=== PATIENT | male | born 1980 | race Caucasian/White ===

== ENCOUNTER 2017-01-20 04:52 | Emergency (ER) | payer SELFPAY ==
[2017-01-20] MEDS ORDERED: IV NORMAL SALINE 1,000ML 1,000 ML IV ONE (05:00)
--- NOTE | 2017-01-20 05:07 | ED.ADGEN ---
Adult General HPI HPI Patient is a 36-year-old man, with a history of seizure disorder, hypothyroidism , who presents emergency department via EMS after reported seizure. Patient is a and O 4 upon arrival to the emergency department, heart rate of 95, blood pressure 138/89, oxygen saturation of 99% on room air with respiratory rate of 20 that is unlabored. Patient states that he was "dumpster diving" with friends , when police arrived on scene, patient states that he was placed in the back of a police cruiser, where he became "really hot and burning up", he states that he then remembers being pulled out of the vehicle, and evidently had a witnessed tonic-clonic seizure per EMS report from PD report, patient is not in police custody. Patient states his last seizure was about 6 months ago, he states that he was previously on Lamictal but stopped taking the medication 2 weeks ago, and has not followed up with neurology this point and is currently off seizure medications, although he states he took his last dose of medication today. He states that he is experiencing a headache, which is consistent with his typical postseizure symptoms, but denies any focal weakness, numbness, tingling, is complaining of photophobia which is also consistent with this procedure state. Denies any ingestions or exposures, any injuries, any nausea, vomiting, chest pain, shortness breath. Patient's is present with him in the emergency department. Per report, patient first experienced an unprovoked seizure several years ago while working at [employer], he states that a cause for the seizure is not known has no history of traumatic brain injury or infection. Review of Systems Review of Systems Constitutional: Denies fever or chills [] Eyes: Denies change in visual acuity, redness, or eye pain [] HENT: Denies nasal congestion or sore throat [] Respiratory: Denies cough or shortness of breath Cardiovascular: No additional information not addressed in HPI [] GI: Denies abdominal pain, nausea, vomiting, bloody stools or diarrhea [] : Denies dysuria or hematuria [] Musculoskeletal: Denies back pain or joint pain [] Integument: Denies rash or skin lesions [] Neurologic: Denies focal weakness or sensory changes. Complaining of headache. [ ] Endocrine: Denies polyuria or polydipsia [] Current Medications Current Medications Current Medications Medications (Trade) Dose Ordered Sig/Marvin Start Time Stop Time Status Last Admin Dose Admin Sodium Chloride 1,000 ml @ 1,000 mls/hr 1X ONCE 01/20/17 05:00 01/20/17 05:59 DC 01/20/17 05:12 1,000 MLS/HR Allergies Allergies Allergies Coded Allergies Type Severity Reaction Last Updated Verified No Known Drug Allergies 01/20/17 No Physical Exam Physical Exam Constitutional: Well developed, well nourished, patient is diaphoretic, otherwise non-toxic appearance. [] HENT: Normocephalic, atraumatic, bilateral external ears normal, oropharynx moist, no oral exudates, nose normal. [] Eyes: PERRLA, EOMI, conjunctiva normal, no discharge. [] Neck: Normal range of motion, no tenderness, supple, no stridor. [] Cardiovascular:Heart rate regular rhythm, no murmur, S1, S2, no rubs or gallops. [] Lungs & Thorax: Bilateral breath sounds clear to auscultation, no wheezing, rhonchi, rales. No chest or crepitus or tenderness. [] Abdomen: Bowel sounds normal, soft, no tenderness, no rebound, rigidity, no guarding, no masses, no pulsatile masses. [] Skin: Warm, dry, no erythema, no rash. [] Back: No tenderness, no CVA tenderness. [] Extremities: No tenderness, no cyanosis, no clubbing, ROM intact, no edema. [] Neurologic: Alert and oriented X 3, normal motor function, normal sensory function, no focal deficits noted. 5 out of 5 strength in all extremities, sensation is intact. [] Psychologic: Affect normal, judgement normal, mood normal. [] Current Patient Data Vital Signs Vital Signs Date Time Temp Pulse Resp B/P (MAP) Pulse Ox O2 Delivery O2 Flow Rate FiO2 01/20/17 04:52 98.3 98 20 100 Room Air Lab Results Laboratory Tests Test 01/20/17 05:10 01/20/17 05:35 White Blood Count 5.9 x10^3/uL (4.0-11.0) Red Blood Count 4.45 x10^6/uL (4.30-5.70) Hemoglobin 13.2 g/dL (13.0-17.5) Hematocrit 39.6 % (39.0-53.0) Mean Corpuscular Volume 89 fL (79-100) Mean Corpuscular Hemoglobin 30 pg (25-35) Mean Corpuscular Hemoglobin Concent 33 g/dL (31-37) Red Cell Distribution Width 13.1 % (11.5-14.5) Platelet Count 312 x10^3/uL (140-400) Neutrophils (%) (Auto) 56 % (31-73) Lymphocytes (%) (Auto) 29 % (24-48) Monocytes (%) (Auto) 12 % (0-9) H Eosinophils (%) (Auto) 2 % (0-3) Basophils (%) (Auto) 1 % (0-3) Neutrophils # (Auto) 3.3 x10^3uL (1.8-7.7) Lymphocytes # (Auto) 1.7 x10^3/uL (1.0-4.8) Monocytes # (Auto) 0.7 x10^3/uL (0.0-1.1) Eosinophils # (Auto) 0.1 x10^3/uL (0.0-0.7) Basophils # (Auto) 0.1 x10^3/uL (0.0-0.2) Sodium Level 139 mmol/L (136-145) Potassium Level 3.6 mmol/L (3.5-5.1) Chloride Level 103 mmol/L (98-107) Carbon Dioxide Level 28 mmol/L (21-32) Anion Gap 8 (6-14) Blood Urea Nitrogen 14 mg/dL (8-26) Creatinine 1.2 mg/dL (0.7-1.3) Estimated GFR (Cockcroft-Gault) 68.1 Glucose Level 102 mg/dL (70-99) H Lactic Acid Level 1.2 mmol/L (0.4-2.0) Calcium Level 8.3 mg/dL (8.5-10.1) L Total Bilirubin 0.3 mg/dL (0.2-1.0) Direct Bilirubin 0.1 mg/dL (0.0-0.2) Aspartate Amino Transferase (AST) 15 U/L (15-37) Alanine Aminotransferase (ALT) 24 U/L (16-63) Alkaline Phosphatase 71 U/L (46-116) Total Protein 7.4 g/dL (6.4-8.2) Albumin 3.8 g/dL (3.4-5.0) Urine Collection Type Unknown Urine Color Yellow Urine Clarity Clear Urine pH 5.5 Urine Specific [place] 1.025 Urine Protein Neg (NEG-TRACE) Urine Glucose (UA) Neg mg/dL (NEG) Urine Ketones (Stick) Neg mg/dL (NEG) Urine Blood Neg (NEG) Urine Nitrite Neg (NEG) Urine Bilirubin Neg (NEG) Urine Urobilinogen Dipstick 0.2 mg/dL (0.2 mg/dL) Urine Leukocyte Esterase Neg (NEG) Urine RBC 0 /HPF (0-2) Urine WBC Occ /HPF (0-4) Urine Squamous Epithelial Cells Few /LPF Urine Bacteria 0 /HPF (0-FEW) Urine Opiates Screen Neg (NEG) Urine Methadone Screen Neg (NEG) Urine Barbiturates Neg (NEG) Urine Phencyclidine Screen Neg (NEG) Urine Amphetamine/Methamphetamine Pos (NEG) Urine Benzodiazepines Screen Pos (NEG) Urine Cocaine Screen Neg (NEG) Urine Cannabinoids Screen Pos (NEG) Urine Ethyl Alcohol Neg (NEG) EKG EKG EC: Sinus rhythm, heart rate 95 beats/minute, upright axis, QTC of 463, [place] 168, QRS of 108, contour abnormality is noted in the anterior leads, no ST elevation or depression, abnormal ECG, does not meet STEMI criteria. As interpreted by me. Radiology/Procedures Radiology/Procedures [] Course & Med Decision Making Course & Med Decision Making Pertinent Labs and Imaging studies reviewed. (See chart for details) Patient complaining of headache and feeling "sore all over", consistent with his typical postseizure symptoms per his report, he denies any change in his typical post seizure symptoms, denies any preceding symptoms. Neurologically intact upon arrival to the ED, with at bedside. No indications for additional imaging based on patient's examination at this time. Patient states that he took his last levothyroxin tablet yesterday, and has not taken any antibiotic medication for 2 weeks, as he has not followed up with a neurologist as initially stated, he states that Lamictal "did not work", but states that he did have issues with noncompliance, due to not liking the side effects. Patient' s laboratory studies reveal a normal lactic, with electrolytes renal function and CBC also within normal limits. Patient is noted to be positive for methamphetamines and marijuana in his urine. I did discuss this with patient at bedside, patient initially denied using any illicit substances, but states "I did some a while ago". Patient's is at bedside, she states that "we have struggled with this issue", she states that she herself has been clean for 6 months. After discussion with patient, where he states that he does not want to restart Lamictal, and does not follow-up with a neurologist she saw previously, I did contact Dr. Pinon, who was on-call for neurology for [facility]. He recommends offering the patient 3 choices, #1 admission to the hospital for additional evaluation, as he has not previously been worked up at [place], and has apparently not seen a neurologist or had a workup for some time, #2 To be restarted on the previous dose of Lamictal and to follow-up as an outpatient, or #3, to forego Lamictal, and to be discharged home as no concerning findings were identified during his evaluation today, and his seizures, if not initially induced by drug use, than at least worsened, to allow the drugs to work their way out of his system before he follows up with neurology. I did offer these choices to the patient and his . Patient states that he is not willing to stay in the hospital for additional evaluation, he states that he would like to go home, he does not want to be restarted on Lamictal. After lengthy discussion with patient and , where I did discuss that I cannot ensure the patient will have recurrent seizures, as he has not been restarted on medication, but I can also not be certain that the patient is a were not triggered by his drug use , patient stated that he did want to be discharged home, with a plan to follow- up with his primary care provider today, and to be set up for neurology follow- up. Patient's is in agreement with this plan, will be with him. We discussed concerning symptoms or prompt return, and possibility of recurrence of seizures or other jail negative sequelae with drug use. Patient voiced understanding and agreement. He did ambulate to wheelchair without issue, and was discharged home in stable condition with his , with plan and precautions as above. Final Impression Final Impression [] Problems: Dragon Disclaimer Dragon Disclaimer This electronic medical record was generated, in whole or in part, using a voice recognition dictation system. Departure: Disposition: HOME, SELF-CARE Condition: IMPROVED MIRIAM BROWN DO Jan 20, 2017 05:07
[2017-01-20 05:19] LABS: BASO # 0.1 x10^3/uL (0.0-0.2); BASO % 1 % (0-3); EOS # 0.1 x10^3/uL (0.0-0.7); EOS % 2 % (0-3); HEMATOCRIT 39.6 % (39.0-53.0); HEMOGLOBIN 13.2 g/dL (13.0-17.5); LYMPH # 1.7 x10^3/uL (1.0-4.8); LYMPH % 29 % (24-48); MEAN CORPUSCULAR HEMOGLOBIN 30 pg (25-35); MEAN CORPUSCULAR HGB CONC 33 g/dL (31-37); MEAN CORPUSCULAR VOLUME 89 fL (79-100); MONO # 0.7 x10^3/uL (0.0-1.1); MONO % 12 % (0-9); NEUT # 3.3 x10^3uL (1.8-7.7); NEUT % 56 % (31-73); PLATELET COUNT 312 x10^3/uL (140-400); RED BLOOD COUNT 4.45 x10^6/uL (4.30-5.70); RED CELL DISTRIBUTION WIDTH 13.1 % (11.5-14.5); WHITE BLOOD COUNT 5.9 x10^3/uL (4.0-11.0)
[2017-01-20 05:30] LABS: ALBUMIN 3.8 g/dL (3.4-5.0); CALCIUM 8.3 mg/dL (8.5-10.1); CREATININE 1.2 mg/dL (0.7-1.3); DIRECT BILIRUBIN 0.1 mg/dL (0.0-0.2); GFR 68.1; POTASSIUM 3.6 mmol/L (3.5-5.1); TOTAL BILIRUBIN 0.3 mg/dL (0.2-1.0); TOTAL PROTEIN 7.4 g/dL (6.4-8.2)
[2017-01-20 05:57] LABS: BARBITURATES NEG (NEG); BENZODIAZEPINES POS (NEG); CANNABINOIDS POS (NEG); COCAINE NEG (NEG); METHADONE NEG (NEG); OPIATES NEG (NEG); PHENCYCLIDINE NEG (NEG)
[2017-01-20 05:58] LABS: BILIRUBIN,URINE NEG (NEG); CLARITY,URINE CLEAR; COLOR,URINE YELLOW; GLUCOSE,URINE NEG (NEG); NITRITE,URINE NEG (NEG); UROBILINOGEN,URINE 0.2 mg/dL (0.2 mg/dL)
[2017-01-20 05:59] LABS: AMPHETAMINE/METHAMPHETAMINE POS (NEG); BACTERIA,URINE 0 /HPF (0-FEW); RBC,URINE 0 /HPF (0-2); SQUAMOUS EPITHELIAL CELL,UR FEW /LPF; WBC,URINE OCC /HPF (0-4)
[2017-01-20 06:27] VITALS: BP 127/88
--- NOTE | 2017-01-20 09:41 | EKG ---
[address] [address] Test Date: 2017-01-20 Test Time: 05:08:36 Pat Name: MINGO SANTOSVALERIE Department: Room: Gender: M Patient Observer: : 1980 Requested By: MIRIAM BROWN Order Number: [id number] Reading MD: Measurements Intervals [place] Rate: 95 P: 71 MD: 168 QRS: 66 QRSD: 108 T: 70 QT: 366 QTc: 463 Interpretive Statements SINUS RHYTHM QRS(T) CONTOUR ABNORMALITY CANNOT RULE OUT ANTEROLATERAL MYOCARDIAL DAMAGE RI6.01 Unconfirmed report No previous ECG available for comparison
== END 2017-01-20 06:31 | disposition home or self-care (01) ==
LOC: ER 04:52
DX: G40.909 Epilepsy, unspecified, not intractable, without status epilepticus (principal); E03.9 Hypothyroidism, unspecified
CPT/HCPCS: 36415; 80048; 80076; 80307; 81001; 83605; 85025; 93005; 99285-25; G0479; J7030